=== PATIENT | female | born 1950 | race Caucasian/White ===

== ENCOUNTER 2017-08-03 19:03 | Emergency (ER) | payer MEDICARE ==
[2017-08-03 19:16] VITALS: BP 174/77
[2017-08-03] MEDS ORDERED: DOXYcycline CAP(*) 100 MG PO ONE (19:28)
[2017-08-03] MEDS ORDERED: Tetan/Diph/Pertus SYR(Tdap)* 0.5 ML SYR(BOOSTRIX) use SYR IM ONE (19:28)
--- NOTE | 2017-08-03 19:34 | ED ---
Bite Injury/Animal - HPI Summary HPI Summary: 67-year-old female presents with a dog bite injury to her right index finger. This was her animal and she states that she was trying to get a tissue away from it when it grabbed her finger. Sustained small laceration to the area. She is right-handed. She is nondiabetic and not a smoker. She cleaned the wound immediately with water and alcohol. Allergic to Augmentin. She sustained no other injury. The dog is up-to-date on its vaccines. She is not up-to-date on her tetanus shot. - History of Current Complaint Chief Complaint: UCBiteInjury Stated Complaint: ANIMAL BITE Time Seen by Provider: 08/03/17 19:22 Hx Obtained From: Patient Pain Intensity: 0 - Allergies/Home Medications Allergies/Adverse Reactions: Allergies Allergy/AdvReac Type Severity Reaction Status Date / Time amoxicillin [From Augmentin] AdvReac Severe Diarrhea Verified 08/03/17 19:16 clavulanic acid AdvReac Severe Diarrhea Verified 08/03/17 19:16 [From Augmentin] Home Medications: Home Medications Aspirin 81 mg CHEW TAB* [Aspirin Low Dose TAB*] 81 mg PO DAILY 08/03/17 [ History Confirmed 08/03/17] Bifidobacterium Infantis [Align] 08/03/17 [History] Cholesterol Med* 08/03/17 [History] Cyanocobalamin TAB* [Vitamin B12 TAB*] 08/03/17 [History Confirmed 08/03/17] FLUoxetine CAP* [PROzac CAP*] 10 mg PO DAILY 08/03/17 [History Confirmed ] Ranitidine TAB (NF) [Zantac TAB (NF)] 150 mg PO DAILY 08/03/17 [History Confirmed 08/03/17] PMH/Surg Hx/FS Hx/Imm Hx Previously Healthy: Yes Endocrine/Hematology History: Denies: Hx Diabetes, Hx Thyroid Disease Cardiovascular History: Denies: Hx Hypertension Respiratory History: Denies: Hx Asthma, Hx Chronic Obstructive Pulmonary Disease (COPD) GI History: Denies: Hx Ulcer - Cancer History Hx Chemotherapy: No Hx Radiation Therapy: No - Surgical History Surgery Procedure, Year, and Place: Hysterectomy 1991, Cholecystectomy 1998 Infectious Disease History: No Infectious Disease History: Denies: Hx Hepatitis, Hx Human Immunodeficiency Virus (HIV), Traveled Outside the [place] in Last 30 Days - Social History Alcohol Use: None Substance Use Type: Reports: None Smoking Status (MU): Never Smoked Tobacco Review of Systems Negative: Fever Negative: Arthralgia, Myalgia, Decreased ROM Positive: Other - dog bite injury to right index finger All Other Systems Reviewed And Are Negative: Yes Physical Exam Triage Information Reviewed: Yes Vital Signs On Initial Exam: Initial Vitals Temp Pulse Resp BP Pulse Ox 97.4 F 59 16 174/77 97 08/03/17 19:11 08/03/17 19:11 08/03/17 19:11 08/03/17 19:11 08/03/17 19:11 Vital Signs Reviewed: Yes Appearance: Positive: Well-Appearing, No Pain Distress Skin: Positive: Warm, Other - On the ulnar aspect of the right index finger middle phalanx there is a 3-4mm skin tear/laceration without bleeding. Just distal to this is an area of contused tissue. Respiratory/Lung Sounds: Positive: Clear to Auscultation Cardiovascular: Positive: RRR Musculoskeletal: Positive: Other - Dog bite injury to the right index finger as above Neurological: Positive: Sensory/Motor Intact Diagnostics - Vital Signs Vital Signs Temp Pulse Resp BP Pulse Ox 08/03/17 19:11 97.4 F 59 16 174/77 97 - Laboratory Lab Statement: Any lab studies that have been ordered have been reviewed, and results considered in the medical decision making process. Bite Injury Course/Dx - Course Course Of Treatment: We cleansed the area under the faucet with soap and water for 5 minutes. It was dried and dressed with a Band-Aid. First dose of doxycycline was given here given that she is allergic to Augmentin. Tetanus shot was updated. - Diagnoses Provider Diagnosis: Dog bite of finger Discharge - Sign-Out/Discharge Documenting (check all that apply): Discharge/Admit/Transfer - Discharge Plan Condition: Good Disposition: HOME Prescriptions: DOXYcycline CAP(*) [DOXYcycline 100MG CAP(*)] 100 mg PO BID #9 cap Patient Education Materials: Animal Bite (ED) [place]errals: [facility] [place] [facility] [place] [facility] [place]Outside] Additional Instructions: Keep clean and dry. Return to ER with increased redness, swelling, drainage, worse or other concerns as discussed. Eat With the antibiotic. - Billing Disposition and Condition Condition: GOOD Disposition: HOME
== END 2017-08-03 19:45 | disposition home or self-care (01) ==
LOC: UCEAST 19:03
DX: S61.210A Laceration without foreign body of right index finger without damage to nail, initial encounter (principal); W54.0XXA Bitten by dog, initial encounter; Y93.9 Activity, unspecified; Y92.009 Unspecified place in unspecified non-institutional (private) residence as the place of occurrence of the external cause; Z23 Encounter for immunization; Z88.1 Allergy status to other antibiotic agents; Z88.0 Allergy status to penicillin
CPT/HCPCS: 90471; 90715; 99212; A9270-GY; G0463